=== PATIENT | male | born 1985 | race Hispanic/Latino ===

== ENCOUNTER 2017-03-24 20:01 | Emergency (ER) | payer SELFPAY ==
[2017-03-24] MEDS ORDERED: Ondansetron HCl/PF 4 MG/2 ML Vial ONE (20:27)
[2017-03-24] MEDS ORDERED: Sodium Chloride 0.9% 1,000 ML ONE ×3 (20:27→21:21)
[2017-03-24 20:34] LABS: Blood, Urine Moderate (Negative); Glucose, Urine (Dipstick) Negative (Negative); Leukocyte Negative (Negative); Nitrite Negative (Negative); Protein, Urine (Dipstick) > or equal to 300 mg/dL (Neg-Trace); Urobilinogen 0.2 mg/dL (0.2-1.0)
[2017-03-24 20:38] LABS: Clarity Hazy (Clear)
[2017-03-24 20:48] LABS: #Basophils 0.1 thou/uL (0.0-0.2); #Lymphocytes 1.2 thou/uL (1.20-3.40); #Neutrophils 16.4 thou/uL (1.40-6.50); %Basophils 0.4 % (0.0-1.0); %Lymphocytes 6.3 % (21.0-51.0); %Monocytes 5.4 % (0.0-10.0); %Neutrophils 87.9 % (42.0-75.0); Differential Comment SCANNED; Hemoglobin 18.8 g/dL (14.0-18.0); Mean Corpuscular HGB CONC 33.7 g/dL (32.0-36.0); Mean Corpuscular Hemoglobin 27.2 pg (27.0-31.0); Mean Corpuscular Volume 80.7 fl (80.0-94.0); Mean Platelet Volume 8.1 fL (7.4-10.4); Platelet Count 346 thou/uL (130-400); RBC Distribution Width 12.7 % (11.5-14.5); White Blood Cell (WBC) Count 18.6 thou/uL (4.8-10.8)
[2017-03-24 20:52] LABS: Icto Positive (Negative); RBC/HPF 0-3 HPF (0-3); Specific Gravity, Urine 1.027 (1.005-1.030); WBC/HPF 0-3 HPF (0-3)
[2017-03-24 20:56] LABS: ALT (SGPT) 17 U/L (8-55); AST (SGOT) 18 U/L (5-34); Albumin 5.7 g/dL (3.5-5.0); Alkaline Phosphatase 107 U/L (40-150); Anion Gap 42 mmol/L (10-20); BUN (Urea Nitrogen) 80 mg/dL (8.9-20.6); Bilirubin, Total 2.6 mg/dL (0.2-1.2); CK (CPK) 861 U/L (30-200); Calc. Creatinine Clearance 0 mL/min (70-130); Calcium 10.9 mg/dL (7.8-10.44); Carbon Dioxide 21 mmol/L (22-29); Estimated GFR-MDRD 6; Globulin 4.9 g/dL (2.4-3.5); Glucose 166 mg/dL (70-105); Lipase 862 U/L (8-78); Potassium 3.7 mmol/L (3.5-5.1); Protein, Total 10.6 g/dL (6.0-8.3); Sodium 132 mmol/L (136-145)
[2017-03-24] MEDS ORDERED: Fentanyl 100 MCG/2 ML VIAL ONE (21:02)
[2017-03-24 21:04] LABS: CKMB 7.9 ng/mL (0-6.6); Chloride 73 mmol/L (98-107); Troponin I 2.158 ng/mL (< 0.028)
--- NOTE | 2017-03-24 21:11 | RAD ---
AP VIEW CHEST SUPINE AND UPRIGHT VIEWS ABDOMEN 03/24/17 The lungs are well aerated. No evidence of active intrathoracic disease seen. No evidence of effusio ns, pneumonia, or pneumothorax seen. Two views abdomen demonstrate abdominal gas pattern to be nonspecific. No evidence of obstruction or ileus seen. No dilated loops of bowel seen. IMPRESSION: Unremarkable AP view chest and two views abdomen. POS: [facility]
[2017-03-24] MEDS ORDERED: ceFAZolin Sodium 1 GM VIAL ONE (21:15)
[2017-03-24] MEDS ORDERED: Sodium Chloride 0.9% 100 ML ONE (21:15)
== END 2017-03-24 22:15 | disposition short-term general hospital (02) ==
LOC: NAV ERS 20:01
DX: K85.90 Acute pancreatitis without necrosis or infection, unspecified (principal); E86.0 Dehydration
CPT/HCPCS: 74022; 80053; 81003; 81015; 82150; 82550; 82553; 83605; 83690; 84484; 85025; 87040; 93005; 96365; 96374; 96375; J0690; J2405; J3010; J7050